=== PATIENT | female | born 1970 | race Caucasian/White ===

== ENCOUNTER 2022-02-06 16:39 | Emergency (ER) | payer OTHER ==
[~2022-02-06] VITALS: Ht 167.6 cm; Wt 86.0 kg
[2022-02-06] MEDS ORDERED: ONDANSETRON HCL 4 MG/2 ML VIAL IVP ONE (18:00)
[2022-02-06] MEDS ORDERED: KETOROLAC TROMETHAMINE 30 MG/ML VIAL IVP ONE (18:00)
[2022-02-06] MEDS ORDERED: SODIUM CHLORIDE 0.9% 1,000 ML IV ONE (18:00)
[2022-02-06 18:01] LABS: APPEARANCE,URINE CLEAR (CLEAR); BILIRUBIN,URINE NEGATIVE (NEGATIVE); GLUCOSE, URINE (UA) NEGATIVE (NEGATIVE); KETONES,URINE NEGATIVE (NEGATIVE); LEUKOCYTE ESTERASE ,URINE NEGATIVE (NEGATIVE); NITRATE,URINE NEGATIVE (NEGATIVE); OCCULT BLOOD,URINE LARGE (NEGATIVE); PH,URINE 5.5 (5.0-8.0); PROTEIN,URINE 30-70 mg/dL (NEGATIVE); SPECIFIC GRAVITIY, URINE 1.029 (1.003-1.030); UROBILINOGEN,URINE <=1.0 mg/dL (<=1.0)
[2022-02-06 18:12] LABS: BASOPHILS % (AUTO) 0.5 % (0.0-2.0); EOSINOPHILS % (AUTO) 0.3 % (1.0-6.0); HEMOGLOBIN 13.8 g/dL (12.0-16.0); LYMPHOCYTES # (AUTO) 1.9 K/uL (1.0-4.8); LYMPHOCYTES % (AUTO) 17.3 % (22.0-44.0); MEAN CORPUSCULAR HEMOGLOBIN 29.2 pg (26.0-34.0); MEAN CORPUSCULAR HGB CONC 33.7 G/dL (31.0-37.0); MEAN CORPUSCULAR VOLUME 87 fL (80-100); MONOCYTES # (AUTO) 0.7 K/uL (0.1-1.0); MONOCYTES % (AUTO) 6.7 % (2.0-9.0); NEUTROPHILS # (AUTO) 8.2 K/uL (1.8-7.7); NEUTROPHILS % (AUTO) 75.2 % (40.0-70.0); PLATELET COUNT (AUTO) 290 K/uL (150-450); RED BLOOD CELL COUNT(AUTO) 4.73 MIL/uL (4.00-5.20); RED CELL DISTRIBUTION WIDTH 13.6 % (11.5-14.5)
[2022-02-06 18:25] LABS: CALCIUM, TOTAL 9.9 mg/dL (8.8-10.5); CREATININE 1.06 mg/dL (0.60-1.30); POTASSIUM 3.7 mmol/L (3.5-5.1)
[2022-02-06] MEDS ORDERED: SODIUM CHLORIDE 0.9% 100 ML ONE (18:41)
[2022-02-06] MEDS ORDERED: IOHEXOL 300 MG/ML 100 ML VIAL ONE (18:41)
[2022-02-06 18:49] LABS: ALBUMIN 3.9 g/dL (3.4-5.0); BILIRUBIN,TOTAL 0.4 mg/dL (0.1-1.0); TOTAL PROTEIN, SERUM 7.3 g/dL (6.4-8.2)
[2022-02-06 18:54] LABS: BACTERIA,URINE None Seen /HPF (None Seen); SQUAMOUS EPITHELIAL CELL,UR Few /LPF (None Seen); TRANSITIONAL EPI CELLS,URINE Few /LPF (None Seen); WBC,URINE 0-2 /HPF (0-5)
[2022-02-06] MEDS ORDERED: IBUP-2070 PO (21:07)
[2022-02-06 22:00] VITALS: BP 139/64
== END 2022-02-06 22:24 | disposition home or self-care (01) ==
LOC: EMS 16:50
DX: R10.9 Unspecified abdominal pain (principal); M19.90 Unspecified osteoarthritis, unspecified site; R73.03 Prediabetes; Z90.710 Acquired absence of both cervix and uterus; Z98.890 Other specified postprocedural states; Z88.8 Allergy status to other drugs, medicaments and biological substances
CPT/HCPCS: 99285; 74177; 96374; 96361; 96375; 80053; 81001; 83690; 84702; 85025; 36415; 81025; J1885; J2405; J7030; J7050; Q9967

== ENCOUNTER 2022-12-10 21:17 | Emergency (ER) | payer OTHER ==
[~2022-12-10] VITALS: Ht 137.2 cm; Wt 72.7 kg
[~2022-12-10 21:17] MED LIST: CLON0.1T2 PO; FLUO20CA36 PO; FURO20TA4 PO; GABA600T10 PO; IBUP-1492 PO; LURA40TA4 PO; MECL-160 PO; TRAZ-252 PO
[2022-12-10 21:40] VITALS: BP 150/94; PULSE 81; RESP 16; TEMP 98.4
[2022-12-10] MEDS ORDERED: LIDOCAINE 5% TRANSDERMAL PATCH TD ONE (22:45)
[2022-12-10] MEDS ORDERED: KETOROLAC TROMETHAMINE 30 MG/ML VIAL IM ONE (22:45)
[2022-12-10] MEDS ORDERED: ACETAMINOPHEN 500 MG TABLET PO ONE (22:45)
[2022-12-10] MEDS ORDERED: IBUP-1492 PO (23:14)
[2022-12-10] MEDS ORDERED: LIDO700A15 TP (23:14)
== END 2022-12-10 23:19 | disposition home or self-care (01) ==
LOC: EMS 21:18
DX: M54.9 Dorsalgia, unspecified (principal); G89.29 Other chronic pain; M19.90 Unspecified osteoarthritis, unspecified site; I11.9 Hypertensive heart disease without heart failure; Z90.710 Acquired absence of both cervix and uterus; Z98.890 Other specified postprocedural states
CPT/HCPCS: 99283; 96372; J1885

== ENCOUNTER 2023-01-27 20:58 | Emergency (ER) | payer OTHER ==
[~2023-01-27] VITALS: Ht 142.2 cm; Wt 72.0 kg
[~2023-01-27 20:58] MED LIST changes: +LIDO700A15 TP; -MECL-160 PO; +MECL-302 PO
[2023-01-27 21:07] VITALS: TEMP 98.8
[2023-01-27] MEDS ORDERED: KETOROLAC TROMETHAMINE 30 MG/ML VIAL IVP ONE (23:15)
[2023-01-27 23:34] LABS: BASOPHILS % (AUTO) 0.4 % (0.0-2.0); EOSINOPHILS % (AUTO) 0.2 % (1.0-6.0); HEMATOCRIT 41.2 % (36-46); HEMOGLOBIN 13.9 g/dL (12.0-16.0); LYMPHOCYTES # (AUTO) 2.8 K/uL (1.0-4.8); LYMPHOCYTES % (AUTO) 27.4 % (22.0-44.0); MEAN CORPUSCULAR HEMOGLOBIN 28.8 pg (26.0-34.0); MEAN CORPUSCULAR HGB CONC 33.6 G/dL (31.0-37.0); MEAN CORPUSCULAR VOLUME 86 fL (80-100); MONOCYTES # (AUTO) 0.6 K/uL (0.1-1.0); MONOCYTES % (AUTO) 5.6 % (2.0-9.0); NEUTROPHILS # (AUTO) 6.8 K/uL (1.8-7.7); NEUTROPHILS % (AUTO) 66.4 % (40.0-70.0); PLATELET COUNT (AUTO) 258 K/uL (150-450); RED CELL DISTRIBUTION WIDTH 13.2 % (11.5-14.5); WHITE BLOOD COUNT (AUTO) 10.2 K/uL (4.5-11.0)
[2023-01-27 23:43] LABS: ANION GAP 11 mmol/L (8-16); CALCIUM, TOTAL 9.6 mg/dL (8.8-10.5); CARBON DIOXIDE 24 mmol/L (22-29); CHLORIDE 106 mmol/L (98-107); CREATININE 0.72 mg/dL (0.60-1.30); GLOMERULAR FILTR. RATE CALC > 60 mL/min (>60); GLUCOSE,RANDOM 108 mg/dL (70-110); POTASSIUM 3.6 mmol/L (3.5-5.1); SODIUM SERUM 141 mmol/L (136-145); UREA NITROGEN, BLOOD 14 mg/dL (7-18)
[2023-01-27 23:50] LABS: ALANINE AMINOTRANSFERASE 47 U/L (12-78); ALBUMIN 3.6 g/dL (3.4-5.0); ALKALINE PHOSPHATASE 101 U/L (46-116); ASPARTATE AMINOTRANSFERASE 22 U/L (15-37); BILIRUBIN,TOTAL 0.3 mg/dL (0.1-1.0); TOTAL PROTEIN, SERUM 6.9 g/dL (6.4-8.2)
[2023-01-28 00:22] LABS: AMYLASE 1401 U/L (25-115)
[2023-01-28] MEDS ORDERED: CefTRIAXone 1 GM/DEXTROSE 50 ML IV ONE (00:45)
[2023-01-28] MEDS ORDERED: IBUP-1492 PO (01:07)
[2023-01-28] MEDS ORDERED: CEPH-558 PO (01:07)
[2023-01-28 01:20] VITALS: BP 130/80; PULSE 92; RESP 16
[2023-01-29 02:06] LABS: MUMPS VIRUS IGG ANTIBODY 37.6 AU/mL (Immune >10.9)
[2023-01-30 19:06] LABS: MUMPS VIRUS IGM ANTIBODY <0.80 AU (0.00-0.79)
== END 2023-01-28 01:23 | disposition home or self-care (01) ==
LOC: EMS 21:00
DX: F41.9 Anxiety disorder, unspecified (principal); M19.90 Unspecified osteoarthritis, unspecified site; F32.A Depression, unspecified; F20.9 Schizophrenia, unspecified; F17.210 Nicotine dependence, cigarettes, uncomplicated; I11.9 Hypertensive heart disease without heart failure; Z90.710 Acquired absence of both cervix and uterus; Z98.890 Other specified postprocedural states; Z88.8 Allergy status to other drugs, medicaments and biological substances
CPT/HCPCS: 70486; 80053; 82150; 85025; 86735; 99284

== ENCOUNTER 2023-10-10 15:06 | Emergency (ER) | payer OTHER ==
[~2023-10-10] VITALS: Ht 144.8 cm; Wt 68.2 kg
[~2023-10-10 15:06] MED LIST changes: +DIVA-112 PO; +FLUO-418 PO; -FLUO20CA36 PO; +FLUT16H NASAL; -IBUP-1492 PO; -LIDO700A15 TP; -MECL-302 PO
[2023-10-10 15:07] VITALS: TEMP 98.6
[2023-10-10] MEDS ORDERED: HYDR50CA7 PO (15:12)
[2023-10-10] MEDS ORDERED: QUET200T PO (15:28)
[2023-10-10] MEDS: PERTUSS(ACELL),DIPH,TET/PF 0.5 ML SYRINGE [ADULT] IM. ONE (15:33)
[2023-10-10 15:34] VITALS: BP 144/62; PULSE 88; RESP 16
== END 2023-10-10 16:47 | disposition home or self-care (01) ==
LOC: EMS 15:08
DX: S61.411A Laceration without foreign body of right hand, initial encounter (principal); I10 Essential (primary) hypertension; F17.210 Nicotine dependence, cigarettes, uncomplicated; F12.90 Cannabis use, unspecified, uncomplicated; Z88.8 Allergy status to other drugs, medicaments and biological substances; W26.0XXA Contact with knife, initial encounter; Y93.89 Activity, other specified; Y92.89 Other specified places as the place of occurrence of the external cause; Y99.8 Other external cause status
CPT/HCPCS: 12001; 90471; 90715; 99283

== ENCOUNTER 2023-12-03 10:42 | Emergency (ER) | payer OTHER ==
[~2023-12-03] VITALS: Ht 149.9 cm; Wt 68.2 kg
[~2023-12-03 10:42] MED LIST changes: +HYDR50CA7 PO; +QUET200T PO
[2023-12-03] MEDS ORDERED: DICL100G60 TP (10:59)
[2023-12-03] MEDS ORDERED: FAMO20TA8 PO (10:59)
[2023-12-03] MEDS ORDERED: QUET100T34 PO (10:59)
[2023-12-03 11:00] VITALS: BP 111/73; PULSE 96; RESP 18; TEMP 97.9
== END 2023-12-03 13:58 | disposition left against medical advice (07) ==
LOC: EMS 10:42
DX: H57.11 Ocular pain, right eye (principal); Z53.21 Procedure and treatment not carried out due to patient leaving prior to being seen by health care provider